=== PATIENT | male | born 1990 | race Caucasian/White ===

== ENCOUNTER → 2018-11-21 14:45 | Outpatient (CLI) | payer BC, SELFPAY ==
[2018-11-21 14:53] LABS: Bacteria 0 SEEN /hpf (None Seen); Mucous, Urine 0 SEEN /hpf (<or=2+); Red Blood Cells-Urine 0 SEEN /hpf (0-5); Squamous Epithelial Cells - UA 0 SEEN /hpf (0-5); White Blood Cells 0 SEEN /hpf (0-5)
[2018-11-21 15:41] LABS: Absolute Lymphocyte Count 2.31 X10^3/ul (0.83-4.51); Absolute Neutrophil Count 4.7 X10^3/uL (2.0-7.7); Basophil# 0.06 X10^3/uL; Basophil% 0.7 % (0-1); Eosinophil# 0.14 X10^3/uL; Eosinophils% 1.7 % (0-5); Hematocrit 47.2 % (40-54); Hemoglobin 16.3 g/dl (13.0-16.5); Lymphocyte # 2.31 X10^3/ul (4.0); Lymphocyte % 28.6 % (19-41); Mean Corp Hgb Conc 34.5 g/gl (32-36); Mean Corpuscular Hgb 31.2 pg (27.0-32.0); Mean Corpuscular Volume 90.4 fL (80-94); Mean Platelet Vol. 9.1 fl (6.2-12.0); Monocyte# 0.84 X10^3/uL; Monocyte% 10.4 % (0-10); Neutrophil % 58.2 % (47-70); Platelet Count 285 K/mm3 (150-450); RBC Distribution Width CV 12.5 % (11.6-14.6); RBC Distribution Width SD 41.2 fl (35.1-43.9); Red Blood Count 5.22 M/mm3 (4.6-6.2); White Blood Count 8.1 K/mm3 (4.4-11.0)
[2018-11-21 15:49] LABS: POSITIVE COUNT NO; POSITIVE DIFFERENTIAL NO; POSITIVE MORPHOLOGY NO
[2018-11-21 16:13] LABS: Color, Urine Yellow (Yellow); Glucose, Dipstick Normal (Normal); Ketone-Dipstick Negative (Negative); Leukocyte Esterase-Dipstick Negative /ul (Negative); Nitrite-Dipstick Negative (Negative); Occult Blood-Urine Negative /ul (Negative); Protein-Dipstick Negative (Negative); Specific Gravity, Urine 1.015 (1.002-1.030); Urine Bilirubin Dipstick Negative (Negative); Urine Clarity Clear (Clear); Urine Urobilinogen Normal (Normal); Urine pH 6.5 (5.0 - 8.0)
[2018-11-21 16:25] LABS: ALB/GLOB Ratio 1.2 RATIO (0.9-2.4); AST(SGOT) 23 U/L (15-37); Alanine Aminotransfer ALT/SGPT 68 U/L (16-61); Albumin, Serum 4.3 g/dL (3.2-5.0); Alkaline Phosphatase 65 U/L (45-117); Anion Gap 9 (5-15); BUN 14 mg/dL (7-18); BUN/Creat Ratio 11.6 RATIO (10-20); Chloride 102 mmol/L (98-107); Cholesterol 241 mg/dL (200); Creatinine, Serum 1.21 mg/dL (0.70-1.30); EST Glomerular Filtration Rate 75 mL/min (>60); Est Glom Filt Rate - Afr Amer 91 mL/min (>60); Globulin 3.6 g/dL (2.2-4.2); Glucose 88 mg/dL (74-106); High Density Lipoprotein 52 mg/dL; Potassium 4.7 mmol/L (3.5-5.1); Protein, Total 7.9 g/dL (6.4-8.2); Sodium Level 139 mmol/L (136-145); Thyroid Stim Hormone (TSH) 2.13 uIU/mL (0.358-3.74); Triglycerides 273 mg/dL; Very Low Density Lipoprotein 55 mg/dL (5-40)
== END ==
PROVIDERS: Family Provider Family Medicine; PCP Family Medicine; Referring Provider Family Medicine; Visit Provider Family Medicine
DX: Z00.00 Encounter for general adult medical examination without abnormal findings (principal)
CPT/HCPCS: 36415; 80053; 80061; 81001; 84443; 85025

== ENCOUNTER → 2018-12-18 08:36 | Outpatient (CLI) | payer BC, SELFPAY ==
[2018-12-18 10:44] LABS: ALB/GLOB Ratio 1.2 RATIO (0.9-2.4); AST(SGOT) 26 U/L (15-37); Alanine Aminotransfer ALT/SGPT 57 U/L (16-61); Albumin, Serum 4.2 g/dL (3.2-5.0); Alkaline Phosphatase 59 U/L (45-117); Anion Gap 5 (5-15); BUN 19 mg/dL (7-18); BUN/Creat Ratio 14.7 RATIO (10-20); Chloride 105 mmol/L (98-107); Creatinine, Serum 1.29 mg/dL (0.70-1.30); EST Glomerular Filtration Rate 70 mL/min (>60); Est Glom Filt Rate - Afr Amer 84 mL/min (>60); Globulin 3.6 g/dL (2.2-4.2); Glucose 95 mg/dL (74-106); Potassium 4.3 mmol/L (3.5-5.1); Protein, Total 7.8 g/dL (6.4-8.2); Sodium Level 138 mmol/L (136-145)
[2018-12-19 08:28] LABS: HEPATITIS B SURFACE AG Negative (Negative); Hep B Surface Antibodies Reactive (.); Hep C Antibodies <0.1 s/co ratio (0.0-0.9)
== END ==
PROVIDERS: Family Provider Family Medicine; PCP Family Medicine; Referring Provider Family Medicine; Visit Provider Family Medicine
DX: Z00.00 Encounter for general adult medical examination without abnormal findings (principal)
CPT/HCPCS: 36415; 80053; 86706; 86803; 87340

== ENCOUNTER → 2018-12-20 13:55 | Outpatient (CLI) | payer BC, SELFPAY ==
--- NOTE | 2018-12-20 14:01 | US_ITS ---
STUDY: RENAL ULTRASOUND - COMPLETE REASON FOR EXAM: Male, 28 years old. Hypertension TECHNIQUE: Ultrasound evaluation of the kidneys was performed with real-time and static altamirano-scale imaging. COMPARISON: None. FINDINGS: RIGHT KIDNEY: Normal location of the right kidney, which is normal in size. The right kidney measures 12.1 cm. There is a normal cortex of the right kidney. The renal cortex measures 1.6 cm. There is a cyst arising from the upper pole of the right kidney which measures 2.3 x 1.7 x 2.1 cm. There are no right renal calculi. There is no right hydronephrosis. DISTAL RIGHT URETER: There is non-visualization of the distal right ureter. There is no demonstrated right ureterovesical junction calculus. There is a visualized right ureteral jet. LEFT KIDNEY: Normal location of the left kidney, which is normal in size. The left kidney measures 11.2 cm. There is a normal cortex of the left kidney. The renal cortex measures 1.5 cm. There is no left renal mass or cyst. There are no left renal calculi. There is no left hydronephrosis. DISTAL LEFT URETER: There is non-visualization of the distal left ureter. There is no demonstrated left ureterovesical junction calculus. There is a visualized left ureteral jet. BLADDER: The distended urinary bladder has a volume of 207 ml. The empty urinary bladder has a volume of 18.2 ml. There is a normal wall thickness of the distended urinary bladder. There is no demonstrated mass within the urinary bladder. There are no demonstrated bladder calculi. Spleen measures 9.6 cm and appears unremarkable. Incidentally noted are small echogenic calculi within the prostate which is not enlarged US/Kidney and Bladder IMPRESSION: 2.3 x 1.7 x 2.1 cm cyst within the upper pole the right kidney, otherwise normal ultrasound of the kidneys and urinary bladder. Electronically Signed: Corey Arguelles, at 23:28 EDT Tel , Service support ,
== END ==
PROVIDERS: Family Provider Family Medicine; PCP Family Medicine; Referring Provider Family Medicine; Visit Provider Family Medicine
DX: I10 Essential (primary) hypertension (principal); N28.1 Cyst of kidney, acquired
CPT/HCPCS: 76770

== ENCOUNTER → 2019-01-01 09:04 | Outpatient (CLI) | payer BC, SELFPAY ==
--- NOTE | 2019-01-01 09:12 | RDU_ITS ---
Reason For Study: HTN Right Renal Artery Left Renal Artery Right renal artery ostium Left renal artery ostium 121.5/38.6 108.6/25.6 RSV/EDV. PSV/EDV. Right renal artery proximal Left renal artery proximal PSV/EDV 105/27.1 PSV/EDV. 122.7/42.1 . Right renal artery mid 122.2/47.2 Left renal artery mid 109.2/41.3 PSV/EDV. PSV/EDV . Right renal artery distal Left renal artery distal 88.1/37.3 126.2/47.2 PSV/EDV. PSV/EDV. Right Renal Parenchyma Left Renal Parenchyma Upper Pole Medula 33.7/13.6 Left upper pole medulla 30/11.6 PSV/EDV. PSV/EDV . Right upper pole medulla EDR 0.40 . Left upper pole medulla EDR 0.39 . Right upper pole medulla R.I. Left upper pole medulla R.I. 0.61 . 0.60 . UP Cortex 23.3/10.4 PSV/EDV. Upper Pravin Cortx 25.5/10.9 PSV/EDV. Left upper pole cortex EDR 0.45 . Right upper pole cortex EDR 0.43 . Left upper pole cortex R.I. 0.55 . Right upper pole cortex R.I. 0.57 . Left lower Pole medulla 26.3/12.2 Right lower Pole medulla 34.6/16.3 PSV/EDV . PSV/EDV . Left lower pole medulla EDR 0.46 . Right lower pole medulla EDR 0.47 . Left lower pole medulla R.I. 0.54 . Right lower pole medulla R.I. Lower Pole Cortx 23.3/10.4 PSV/EDV. 0.53 . Left lower pole cortex EDR 0.45 . Lower Pole Cortex 26.4/11.8 Left lower pole cortex R.I. 0.55 . PSV/EDV. Left Renal Hilar Right lower pole cortex EDR 0.45 . LT Hilar avg 42.8/20 PSV/EDV . Right lower pole cortex R.I. 0.55 . Left hilar acceleration time 40 Right Renal Hilar m/sec. Right Hilar avg 45.6/23.7 PSV/EDV. Left Renal Dimensions Right hilar acceleration time 40 Left kidney size 11.05 cm . m/sec. Left cortical dimension 2.08 cm . Right Renal Dimensions Right kidney size 12.17 cm . Right cortical dimension 1.53 cm . Aorta Proximal abdominal aorta 1.72 x 1.72 cm . Proximal abdominal aorta peak systolic velocity is 157.8 cm/sec . Distal abdominal aorta 1.42 x 1.39 cm . Distal abdominal aorta peak systolic velocity is 155.2 cm/sec . Interpretation Summary Dimensions of the intra-abdominal aorta appear normal, without evidence of aneurysmal dilatation. Renal artery velocities are bilaterally normal. Acceleration times are normal bilaterally. There is no evidence of hemodynamically significant renal artery stenosis on either side. Renovascular resistance appears to be bilaterally normal . The right cortical dimension is increased. The left cortical dimension is increased. Kidneys appear normal in size bilaterally. Ordering Physician: José Rangel Referring Physician: José Rangel Performed By: Bharati Guerrier [email or web address]
== END ==
PROVIDERS: Family Provider Family Medicine; PCP Family Medicine; Referring Provider Family Medicine; Visit Provider Family Medicine
DX: I10 Essential (primary) hypertension (principal)
CPT/HCPCS: 93975

== ENCOUNTER → 2019-01-22 11:27 | Outpatient (CLI) | payer BC, SELFPAY ==
[2019-01-22 14:23] LABS: Anion Gap 8 (5-15); BUN 14 mg/dL (7-18); BUN/Creat Ratio 12.4 RATIO (10-20); Calcium,Total 9.5 mg/dL (8.5-10.1); Chloride 103 mmol/L (98-107); Creatinine, Serum 1.13 mg/dL (0.70-1.30); EST Glomerular Filtration Rate 81 mL/min (>60); Est Glom Filt Rate - Afr Amer 98 mL/min (>60); Glucose 93 mg/dL (74-106); Potassium 4.3 mmol/L (3.5-5.1); Sodium Level 137 mmol/L (136-145)
== END ==
PROVIDERS: Family Provider Family Medicine; PCP Family Medicine; Visit Provider Family Medicine
DX: I10 Essential (primary) hypertension (principal)
CPT/HCPCS: 36415; 80048